=== PATIENT | male | born 1950 | race Caucasian/White ===

== ENCOUNTER 2019-08-30 18:45 | Emergency (ER) | payer OTHER, SELFPAY ==
[2019-08-30 19:21] VITALS: BP 147/82; PULSE 68; RESP 19; TEMP 36.8; O2SAT 97; BMI 29.0
--- NOTE | 2019-08-30 19:25 | HMH.EDUTC ---
[facility] [place] Disposition Clinical Impression: Encounter for laboratory testing for COVID-19 virus Disposition: Home, Self-Care Condition on Discharge: Good Instructions: Preventing the Spread of Coronavirus Discharge Instructions Additional Instructions: Go home and self isolate Call back to [facility] on Sunday for test results Further instruction per handout you was given Straight to ER if any life threatening symptoms Referrals: Provider,Referral, [Primary Care Provider] - As needed Time of Disposition: 19:26 Medical Decision Making - Cameron Inquiry Pt receiving controlled substance: No Cameron was queried for this patient: No Vital Signs: 08/30/19 19:21 Temperature 98.2 F Temperature Source Oral Pulse Rate [Right Brachial] 68 Respiratory Rate 19 Blood Pressure [Right Arm] 147/82 H Blood Pressure Mean [Right Arm] 103 Blood Pressure Source [Right Arm] Automatic Cuff Blood Pressure Position [Right Arm] Sitting 02 Sat by Pulse Oximetry 97 Oxygen Delivery Method Room Air Orders (Tests/Meds): ORDERS Category Date Time Status SARS-CoV-2, [place] ([place]) Stat Lab 08/30/19 19:15 Received [facility] [place] HPI - General Stated complaint: Wants to be tested for COVID-19 Time Seen by Provider: 08/30/19 19:25 Mode of Arrival: Ambulatory Source of Information: Patient Limitations: No Limitations Description of Symptoms (Recalled from Triage Doc. by RN): PATIENT REQUESTING COVID-19 TEST HEENT Symptoms (Recalled from RN notes): No Resp Symptoms (Recalled from RN notes): No Skin Symptoms (Recalled from RN notes): No MS Symptoms (Recalled from RN notes): No Functional Status (Recalled from RN notes): WNL - History of Present Illness Provider Complaint: Patient states that he was around someone on Sunday that was positive for COVID States that he wasnt that close but unsure and he has a handicapt child at home and he wanted to get tested States that he hasnt had any symptoms that he is aware of - Worker's Comp Is this a Worker's Comp case?: No [facility] History - Hepatitis A Screen Drug use history?: No High risk sexual behaviors?: No History of sexually transmitted infection?: No Currently employed?: No Childcare worker?: No Do you have indoor plumbing?: Yes Do you have electricity?: Yes Attestation statement:: This patient has been screened for Hepatitis A risk factors. I have reviewed the patient's past medical history: Yes - Social History Alcohol Intake: never Occupational Status: other ROS Obtained: Yes All systems reviewed & no additional complaints, Yes Systems reviewed as appropriate & no additional complaints - ENT Ears, Nose, Mouth, and Throat: Reports system reviewed and no additional complaints, except as docu - Cardiovascular Cardiovascular: Reports system reviewed and no additional complaints, except as docu - Respiratory Respiratory: Yes system reviewed and no additional complaints, except as docu - Gastrointestinal Gastrointestingal: Reports: system reviewed and no additional complaints, except as docu Physical Exam - General General appearance: alert, in no apparent distress - ENT ENT exam: Present: normal exam, normal oropharynx, mucous membranes moist, TM's normal bilaterally, normal external ear exam - Respiratory Respiratory exam: Present: normal lung sounds bilaterally. Absent: respiratory distress - Cardiovascular Cardiovascular exam: Present: regular rate, normal rhythm. Absent: JVD - Abdominal Exam Abdominal exam: Present: soft, normal bowel sounds. Absent: distention, tenderness, guarding - Neurological Exam Neurological exam: Present: alert, oriented X3
[2019-08-30 19:30] VITALS: BP 147/82; PULSE 68; RESP 19; TEMP 36.8; O2SAT 97
[2019-09-02 09:41] LABS: Covid-19 Nasal PCR Sendout UK NOT DETECTED
== END 2019-08-30 19:32 | disposition home or self-care (01) ==
PROVIDERS: Emergency Provider Nurse Practitioner
DX: Z20.828 Contact with and (suspected) exposure to other viral communicable diseases (principal)
CPT/HCPCS: 99201; U0003